=== PATIENT | female | born 1950 | race Caucasian/White ===

== ENCOUNTER → 2017-06-12 | Outpatient (CLI) | payer MEDICARE, OTHER ==
--- NOTE | 2017-06-13 11:43 | RSPPFT ---
DATE OF PROCEDURE: 06/12/17 COMMENTS: Spirometry shows FVC of 2.6 at 95% of predicted, FEV1 of 2.1 at 94%, FEV1/FVC ratio is normal. Flow is normal at FEF 25, FEF 50, FEF 75 and FEF 25-75. There is no response after acutely inhaled bronchodilator treatment. Lung volumes show residual volume is normal. TLC is normal. Diffusion capacity is decreased. Flow volume loop indicates a normal pattern. 6-minute walk test shows no de-saturation. IMPRESSION: 1. Normal spirometry. 2. No response after bronchodilator treatment. 3. Normal lung volumes. 4. Decreased diffusion capacity. 6. 6-minute walk test shows no de-saturation.
== END ==
LOC: HRSP 07:57
PROVIDERS: ATTEND Specialist
DX: R06.00 Dyspnea, unspecified (principal)
CPT/HCPCS: 94060; 94620; 94726; 94729